=== PATIENT | female | born 1955 | race Caucasian/White ===

== ENCOUNTER 2017-04-23 18:58 | Emergency (ER) | payer BC ==
[2017-04-23 19:11] VITALS: BP 143/92
--- NOTE | 2017-04-23 20:40 | RADIOLOGY REPORT (SQ) ---
EXAM DESCRIPTION: WRIST LEFT 3 VIEWS COMPLETED DATE/TIME: 04/23/2017 8:32 pm REASON FOR STUDY: wrist pain s/p fall from ladder COMPARISON: None. NUMBER OF VIEWS: Three views. TECHNIQUE: AP, lateral, and oblique radiographic images acquired of the left wrist. LIMITATIONS: None. FINDINGS: MINERALIZATION: Normal. BONES: Nondisplaced intra-articular fracture involving the lateral aspect of the distal radius. Bone s otherwise appear to be intact. 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 There is mild widening of the scapholunate interval. Articulations otherw ise maintained. SOFT TISSUES: Mild soft tissue swelling. OTHER: No other significant finding. IMPRESSION: INTRA-ARTICULAR DISTAL RADIAL FRACTURE ABOVE. WIDENING OF THE SCAPHOLUNATE INTERVAL SUGGESTIVE OF LIGAMENTOUS INJURY WHICH MAY BE CHRONIC. CORRELA TE WITH ANY HISTORY OF PRIOR INJURY. OSTEOARTHRITIS 1ST CMC JOINT. TECHNICAL DOCUMENTATION: JOB ID: [id number] [email or web address] All Rights Reserved
--- NOTE | 2017-04-23 21:55 | ER Document Report ---
ED Hand/Wrist Injury <RODOLFO MACKAY - Last Filed: 04/23/17 22:31> - General Mode of Arrival: Ambulatory Information source: Patient TRAVEL OUTSIDE OF THE [place] IN LAST 30 DAYS: No <YIN FERNANDEZ - Last Filed: 04/23/17 22:42> - General Chief Complaint: Wrist Injury Stated Complaint: LEFT WRIST PAIN Time Seen by Provider: 04/23/17 21:24 Notes: Patient is a 61-year-old female who presents to the emergency department today with complaints of left wrist pain. Patient states she was on a ladder painting when she fell. Patient states when she came down the ladder she lost her footing on the second step falling over. Patient states she has had pain in the left wrist since the fall which occurred just prior to arrival. Patient denies any other injuries during the fall. (YIN FERNANDEZ) - Related Data Allergies/Adverse Reactions: No Known Allergies Allergy (Unverified 04/23/17 19:05) Past Medical History - General Information source: Patient - Social History Smoking Status: Former Smoker Cigarette use (# per day): No Frequency of alcohol use: None Drug Abuse: None Lives with: Family Family History: Reviewed & Not Pertinent Patient has suicidal ideation: No Patient has homicidal ideation: No - Medical History Medical History: Negative Past Surgical History: Reports: Hx Orthopedic Surgery - bilateral knees, right wrist <YIN FERNANDEZ - Last Filed: 04/23/17 22:42> Review of Systems - Review of Systems Constitutional: No symptoms reported EENT: No symptoms reported Cardiovascular: No symptoms reported Respiratory: No symptoms reported Gastrointestinal: No symptoms reported Genitourinary: No symptoms reported Female Genitourinary: No symptoms reported Musculoskeletal: See HPI, Joint pain - left wrist Skin: No symptoms reported Hematologic/Lymphatic: No symptoms reported Neurological/Psychological: No symptoms reported -: Yes All other systems reviewed and negative <YIN FERNANDEZ - Last Filed: 04/23/17 22:42> Physical Exam <RODOLFO MACKAY - Last Filed: 04/23/17 22:31> <YIN FERNANDEZ - Last Filed: 04/23/17 22:42> - Vital signs Vitals: Temp Pulse Resp BP Pulse Ox 98.3 F 91 18 143/92 H 100 04/23/17 19:09 04/23/17 19:09 04/23/17 19:09 04/23/17 19:09 04/23/17 19:09 - Notes Notes: Physical Exam: General: Alert, appears well. HEENT: Normocephalic. Atraumatic. PERRLA. Extraocular movements intact. Oropharynx clear. Neck: Supple. Respiratory: No respiratory distress. Abdominal: Normal Inspection. No distension. Extremities: Tenderness with palpation and swelling over left distal radial wrist. Minimal swelling over left scaphoid/lunate area. Neurological: Normal cognition. AAOx4. Normal speech. Psychological: Normal affect. Normal Mood. Skin: Warm. Dry. Normal color. (YIN FERNANDEZ) Course - Diagnostic Test Radiology reviewed: Image reviewed, Reports reviewed - Left wrist x-ray shows a nondisplaced lateral intra-articular distal radial fracture. There is a scaphoid lunate interval widening. There is osteoarthritis of the first CMC joint with loose body. 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 There is not much swelling in that area which would suggest the x-ray finding it is of a chronic nature. 04/23/17 22:[address] herself to the emergency room and has to drive home. She is provided dispense Cochran pack to take home with her and then take when she gets home. The sugar tong splint was placed on the left wrist and forearm by the PCT. A sling was provided for support. This was examined by me, found to have good capillary refill and sensation to the fingertips. Splint did provide some degree of comfort and stabilization to the fracture area. (RODOLFO MACKAY) - Vital Signs Vital signs: Temp Pulse Resp BP Pulse Ox 98.3 F 91 18 143/92 H 100 04/23/17 19:09 04/23/17 19:09 04/23/17 19:09 04/23/17 19:09 04/23/17 19:09 Discharge <RODOLFO MACKAY - Last Filed: 04/23/17 22:31> <JIMYIN COX - Last Filed: 04/23/17 22:42> - Discharge Clinical Impression: Distal radius fracture, left Qualifiers: Encounter type: initial encounter Fracture type: closed Fracture morphology: other intra-articular Qualified Code(s): S52.572A - Other intraarticular fracture of lower end of left radius, initial encounter for closed fracture Condition: Stable Disposition: HOME, SELF-CARE Additional Instructions: Fractured Radius: The bone called the radius is fractured. This type of fracture is typically caused by falling onto the outstretched hand. The fracture is not serious, however, and should heal well with adequate protection. Your physician 's evaluation shows the bone is in good position to heal. A cast or splint is used to protect the fracture. For the first few days after the injury, the arm should be elevated and ice packed. Healing takes from three to eight weeks, depending on the age of the patient and the seriousness of the fracture. Your doctor has explained the treatment plan. It's important that you follow up as instructed to prevent complications. Call the doctor or return at once if severe pain or swelling occur, or if the hand becomes numb, swollen, or discolored. //////////////////////////////////////////////////////////////////////////////// //////////////////////////////////////////////////////////////////////////////// /////////////////// Keep the splint clean and dry. Elevate the hand above your heart is much as possible. Use ice packs for the first 12-24 hours to reduce swelling. Take the pain medications as prescribed if needed, if Tylenol and Motrin do not control your pain. Follow-up with your orthopedic surgeon this week. RETURN TO THE EMERGENCY ROOM IF ANY NEW OR WORSENING SYMPTOMS. Prescriptions: Oxycodone HCl/Acetaminophen [Percocet 5-325 mg Tablet] 1 tab PO ASDIR PRN #15 tablet PRN Reason: Referrals: HILLARY PRESTON MD [Primary Care Provider] - Follow up as needed Scribe Attestation: 04/23/17 22:24 I personally performed the services described in the documentation, reviewed and edited the documentation which was dictated to the scribe in my presence, and it accurately records my words and actions. (RODOLFO MACKAY) Scribe Documentation - Scribe Written by Meghann:: Meghann Pendleton, 04/23/2017 [id number] acting as scribe for :: Capo <YIN FERNANDEZ - Last Filed: 04/23/17 22:42>
[2017-04-23] MEDS ORDERED: HYDROCODONE/ACETAMINOPHEN 5-325 MG 6 TAB/DSPK PO PRN (22:18)
== END 2017-04-23 22:28 | disposition home or self-care (01) ==
LOC: ER 18:58
DX: S52.572A Other intraarticular fracture of lower end of left radius, initial encounter for closed fracture (principal); W11.XXXA Fall on and from ladder, initial encounter; Y93.E9 Activity, other interior property and clothing maintenance; Y92.009 Unspecified place in unspecified non-institutional (private) residence as the place of occurrence of the external cause; M19.042 Primary osteoarthritis, left hand; Z87.891 Personal history of nicotine dependence
CPT/HCPCS: 99283